=== PATIENT | male | born 1935 | race Caucasian/White ===

== ENCOUNTER 2018-04-15 15:08 | Outpatient (CLI) | payer SELFPAY | END 2018-04-15 23:59 | disposition home or self-care (01) | LOC: RAD 15:08 | PROVIDERS: ATTEND Dermatology Procedural Dermatology | DX: M19.011 Primary osteoarthritis, right shoulder (principal); I70.298 Other atherosclerosis of native arteries of extremities, other extremity; G89.29 Other chronic pain | CPT/HCPCS: 72190 ==